=== PATIENT | male | born 1970 | race Caucasian/White ===

== ENCOUNTER 2020-03-22 08:42 | Inpatient (IN) | payer MEDICAID ==
--- NOTE | 2020-03-22 10:31 | ER Document Report ---
ED General - General Chief Complaint: Palpitations Stated Complaint: IRREGULAR HEART RATE Time Seen by Provider: 03/22/20 10:04 Notes: 49-year-old man presents to the emergency department with a two-week history of intermittent episodes of rapid heartbeat. He has a history of SVT is taking diltiazem, states he is been compliant with medications. During the episodes, now he is having chest pain, episodic dizziness, and yesterday a presyncopal episode. He states he has been on diltiazem for approximately 5 years. So has a history of thyroid disease and is taking a dose of Synthroid. TRAVEL OUTSIDE OF THE [place] IN LAST 30 DAYS: No - Related Data Allergies/Adverse Reactions: No Known Drug Allergies Allergy (Verified 03/22/20 10:20) Past Medical History - Social History Smoking Status: Unknown if Ever Smoked Family History: Reviewed & Not Pertinent - Past Medical History Cardiac Medical History: Reports: Hx Atrial Fibrillation, Hx Hypertension - No longer taking hypertension medication Denies: Hx Heart Murmur Pulmonary Medical History: Reports: Hx Bronchitis, Hx COPD Denies: Hx Respiratory Failure, Hx Sleep Apnea, Hx Tuberculosis Neurological Medical History: Denies: Hx Cerebrovascular Accident, Hx Seizures, Hx Parkinson's Disease Endocrine Medical History: Denies: Hx Graves' Disease, Hx Hyperthyroidism, Hx Hypothyroidism Renal/ Medical History: Denies: Hx Benign Prostatic Hyperplasia, Hx End Stage Renal Disease, Hx Kidney Stones, Hx Peritoneal Dialysis Malignancy Medical History: Denies Hx Leukemia, Reports Hx Lung Cancer GI Medical History: Reports: Hx Gastroesophageal Reflux Disease. Denies: Hx Crohn's Disease, Hx Hiatal Hernia, Hx Irritable Bowel, Hx Liver Failure, Hx Pancreatitis, Hx Ulcer Musculoskeletal Medical History: Reports Hx Arthritis, Denies Hx Fibromyalgia, Denies Hx Multiple Sclerosis, Denies Hx Muscular Dystrophy, Denies Hx Systemic Lupus Erythematosus Psychiatric Medical History: Reports: Hx Depression Denies: Hx Bipolar Disorder, Hx Dementia, Hx Post Traumatic Stress Disorder, Hx Schizophrenia Traumatic Medical History: Reports: Hx Fractures - Has been seen at least once with hand fracture from punching a wall. Infectious Medical History: Denies: Hx HIV Past Surgical History: Reports: Hx Orthopedic Surgery - left leg. Denies: Hx Appendectomy, Hx Bowel Surgery, Hx Cholecystectomy, Hx Colostomy, Hx Coronary Artery Bypass Graft, Hx Gastric Bypass Surgery, Hx Herniorrhaphy, Hx Pacemaker, Hx Tonsillectomy - Immunizations Hx Diphtheria, Pertussis, Tetanus Vaccination: Yes Hx Pneumococcal Vaccination: 06/28/11 Review of Systems - Review of Systems Notes: Constitutional: Negative for fever. HENT: Negative for sore throat. Eyes: Negative for visual changes. Cardiovascular: Negative for chest pain. Respiratory: Negative for shortness of breath. Gastrointestinal: Negative for abdominal pain, vomiting or diarrhea. Genitourinary: Negative for dysuria. Musculoskeletal: Negative for back pain. Skin: Negative for rash. Neurological: Negative for headaches, weakness or numbness. 10 point ROS negative except as marked above and in HPI. Physical Exam - Vital signs Vitals: Temp Pulse Resp BP Pulse Ox 98.3 F 105 H 20 128/80 H 93 03/22/20 08:47 03/22/20 08:47 03/22/20 08:47 03/22/20 08:47 03/22/20 08:47 - Notes Notes: PHYSICAL EXAMINATION: Physical Exam: General: Well-nourished well-developed in no acute distress HEENT: NC/AT, pupils equal round and reactive to light, MM moist,nares clear, oropharynx clear, airway patent Neck: supple, no adenopathy, no masses. Good range of motion Lungs: clear, no wheezing, no rales no rhonchi CVS: Regular rate and rhythm no murmur gallop or rub Abdomen: Soft, active, nontender, no masses, no hepatosplenomegaly Ext: No edema, clubbing or cyanosis. Neuro: Alert and responsive, moving all 4 extremities on command, cranial nerves intact, no focal findings Skin: Intact no open lesions, no rash PSYCH: Normal mood, normal affect. Intermittent tachycardia during exam. Course - Re-evaluation Re-evalutation: 03/22/20 11:24 Discussed the patient with Dr. Ferguson, cardiology, he states that the patient should be brought into the hospital for monitoring, echocardiogram, rule out cardiac injury and will be seen for transfer to [facility] lab. We will continue a beta-tyree. He has received IV diltiazem 15 mg IV and metoprolol 5 mg in the emergency department presently the rhythm normal sinus at rate of 82. 03/22/20 14:03 Discussed the patient with the hospitalist , patient will be admitted to the [facility] for further monitoring and to rule out WA. - Vital Signs Vital signs: Temp Pulse Resp BP Pulse Ox 98.3 F 105 H 25 H 113/75 95 03/22/20 08:47 03/22/20 08:47 03/22/20 11:46 03/22/20 11:46 03/22/20 11:46 - Laboratory Result Diagrams: 03/22/20 09:55 03/22/20 09:55 Laboratory results interpreted by me: 03/22/20 03/22/20 03/22/20 09:55 09:55 09:55 WBC 11.3 H RDW 14.9 H Plt Count 122 L [place] % (Auto) 14.1 H Absolute Monos (auto) 1.6 H Sodium 133.5 L BUN 4 L Creatine Kinase 293 H TSH 0.40 L - Diagnostic Test Radiology reviewed: Image reviewed, Reports reviewed Radiology results interpreted by me: 03/22/20 14:04 Chest x-ray: Patchy left lower lobe consolidation with small pleural effusion. - EKG Interpretation by Me EKG shows normal: ST-T Waves - ST depression, rate related. Rate: Tachycardia - 190 Rhythm: SVT Dola/QRS: Left axis deviation Discharge - Discharge Clinical Impression: Supraventricular tachycardia, paroxysmal, Dizziness Chest pain Qualifiers: Chest pain type: unspecified Qualified Code(s): R07.9 - Chest pain, unspecified Condition: Good Disposition: ADMITTED INPATIENT Admitting Provider: Dilma (Hospitalist) Unit Admitted: Telemetry
[2020-03-22] MEDS ORDERED: DILTIAZEM HCL INJ 25 MG/5 ML VIAL IV ONE (10:33)
[2020-03-22 10:54] LABS: ABSOLUTE BASOPHILS # (AUTO) 0.1 10^3/uL (0.0-0.2); ABSOLUTE EOSINOPHILS # (AUTO) 0.1 10^3/uL (0.0-0.6); ABSOLUTE LYMPHOCYTES (AUTO) 1.9 10^3/uL (0.5-4.7); ABSOLUTE MONOCYTES (AUTO) 1.6 10^3/uL (0.1-1.4); ABSOLUTE NEUT (AUTO) 7.7 10^3/uL (1.7-8.2); BASOPHILS % (AUTO) 0.8 % (0-2); EOSINOPHILS % (AUTO) 0.8 % (0-6); HEMATOCRIT 44.2 % (37.9-51.0); HEMOGLOBIN 14.4 g/dL (13.5-17.0); LYMPHOCYTES % (AUTO) 16.7 % (13-45); MEAN CORPUSCULAR HGB CONC 32.7 g/dL (32.0-36.0); MEAN CORPUSCULAR VOLUME 83 fl (80-97); MONOCYTES % (AUTO) 14.1 % (3-13); RED BLOOD COUNT 5.34 10^6/uL (4.35-5.55); RED CELL DISTRIBUTION WIDTH 14.9 % (11.5-14.0); SEGMENTED NEUTROPHILS % (AUTO) 67.6 % (42-78); TOTAL CELLS COUNTED % (AUTO) 100 %; WHITE BLOOD COUNT 11.3 10^3/uL (4.0-10.5)
[2020-03-22 10:56] LABS: ALBUMIN 3.6 g/dL (3.5-5.0); ALKALINE PHOSPHATASE 97 U/L (38-126); ANION GAP 9 (5-19); ASPARTATE AMINO TRANSFERASE 44 U/L (17-59); BILIRUBIN,TOTAL 0.6 mg/dL (0.2-1.3); BLOOD UREA NITROGEN 4 mg/dL (7-20); CALCIUM 8.5 mg/dL (8.4-10.2); CARBON DIOXIDE 26 mmol/L (22-30); CHLORIDE 99 mmol/L (98-107); CREATINE KINASE 293 U/L (55-170); GLUCOSE 80 mg/dL (75-110); TOTAL PROTEIN 6.9 g/dL (6.3-8.2)
[2020-03-22] MEDS ORDERED: METOPROLOL TARTRATE PF/INJ 5 MG/5 ML SDV IV ONE ×3 (11:00→11:15)
--- NOTE | 2020-03-22 11:04 | RADIOLOGY REPORT (SQ) ---
EXAM DESCRIPTION: CHEST SINGLE VIEW IMAGES COMPLETED DATE/TIME: 03/22/2020 10:54 am REASON FOR STUDY: Tachycardia/shortness of breath COMPARISON: 08/19/2014 TECHNIQUE: Single frontal radiographic view of the chest acquired. NUMBER OF VIEWS: One view. LIMITATIONS: None. FINDINGS: LUNGS AND PLEURA: No pneumothorax. New patchy left basilar consolidation -possible small left pleural effusion. Right lung appears clear. MEDIASTINUM AND HILAR STRUCTURES: Stable. HEART AND VASCULAR STRUCTURES: Stable. BONES: No acute findings. HARDWARE: None in the chest. OTHER: No other significant finding. IMPRESSION: New patchy left basilar consolidation -possible small left pleural effusion. TECHNICAL DOCUMENTATION: JOB ID: [id number] [id number] 2010 [employer]- All Rights Reserved Reading location - IP/workstation name: [email or web address]
[2020-03-22 11:07] LABS: CREATINE KINASE MB 1.72 ng/mL (<4.55); TROPONIN I 0.013 ng/mL
[2020-03-22 11:21] LABS: PLATELET COUNT 122 10^3/uL (150-450)
[2020-03-22 12:10] LABS: FREE T4 (FREE THYROXINE) 1.27 ng/dL (0.78-2.19)
[2020-03-22 12:24] LABS: THYROID STIMULATING HORMONE 0.4 uIU/mL (0.47-4.68)
[2020-03-22 12:30] LABS: APPEARANCE,URINE CLEAR; BILIRUBIN,URINE NEGATIVE (NEGATIVE); COLOR,URINE STRAW; GLUCOSE, URINE NEGATIVE (NEGATIVE); KETONES,URINE NEGATIVE (NEGATIVE); PROTEIN,URINE NEGATIVE (NEGATIVE); URINE SPECIFIC GRAVITY 1.003; UROBILINOGEN,URINE NEGATIVE mg/dL (<2.0)
[2020-03-22 12:51] LABS: URINE AMPHETAMINES SCREEN NEGATIVE; URINE BARBITURATES SCREEN NEGATIVE; URINE BENZODIAZEPINES SCREEN NEGATIVE; URINE COCAINE SCREEN NEGATIVE; URINE MARIJUANA (THC) SCREEN NEGATIVE; URINE METHADONE SCREEN NEGATIVE; URINE PHENCYCLIDINE SCREEN NEGATIVE
[2020-03-22] MEDS ORDERED: IPRATROPIUM/ALBUTEROL 0.5-2.5 MG/3 ML AMPUL NEB ONE (14:47)
[2020-03-22] MEDS: IPRATROPIUM/ALBUTEROL 0.5-2.5 MG/3 ML AMPUL NEB PRN (14:47)
[2020-03-22] MEDS ORDERED: ONDANSETRON HCL INJ/PF 4 MG/2 ML SDV IV PRN (14:53)
[2020-03-22] MEDS ORDERED: METOPROLOL TARTRATE PF/INJ 5 MG/5 ML SDV IV PRN (16:08)
[2020-03-22] MEDS ORDERED: AZITHROMYCIN INJ 500 MG VIAL IV ONE ×2 (18:30→22:16)
[2020-03-22] MEDS: CEFTRIAXONE 2 GM/D5W RTU 2 GM/50 ML RTUPB IV SCH (18:55)
--- NOTE | 2020-03-22 19:17 | EKG REPORT ---
SEVERITY:- ABNORMAL ECG - SUPRAVENTRICULAR TACHYCARDIA BORDERLINE LEFT AXIS DEVIATION ST DEPRESSION, PROBABLY RATE RELATED : Confirmed by: Gael Rico 22-Mar-2020 19:17:16
--- NOTE | 2020-03-22 19:19 | EKG REPORT ---
SEVERITY:- OTHERWISE NORMAL ECG - SINUS RHYTHM BORDERLINE LEFT AXIS DEVIATION : Confirmed by: Gael Rico 22-Mar-2020 19:18:26
[2020-03-22] MEDS ORDERED: GUAIFENESIN SYRP 200 MG/10 ML UDC PO PRN (19:35)
--- NOTE | 2020-03-22 19:39 | PDOC H&P ---
History of Present Illness Admission Date/PCP: 03/22/20 14:09 Patient complains of: Palpitations History of Present Illness: KETAN PORTILLO is a 49 year old male with history of COPD, distant history of lung cancer reports to be in remission, who presents to the hospital after becoming dyspneic with palpitations. He has been having these symptoms off and on for the past 1 week but the symptoms became really bad today urging him to come to the hospital. He also had a brief episode of syncope yesterday which was preceded by excessive palpitations. He denied any chest pain during encounter. In the ER, patient was noted to have severe SVT in the 180s was given Cardizem after which he showed improvement. Subsequently referred to hospitalist service for admission. Patient also endorses a dry hacking cough which he states he feels is due to his COPD. Past Medical History Cardiac Medical History: Reports: Atrial Fibrillation, Hypertension - No longer taking hypertension medication Denies: Heart Murmur Pulmonary Medical History: Reports: Bronchitis, Chronic Obstructive Pulmonary Di sease (COPD) Denies: Respiratory Failure, Sleep Apnea, Tuberculosis Neurological Medical History: Denies: Seizures Endocrine Medical History: Denies: Hyperthyroidism, Hypothyroidism Renal/ Medical History: Denies: End Stage Renal Disease Malignancy Medical History: Reports: Lung Cancer Denies: Leukemia GI Medical History: Reports: Gastroesophageal Reflux Disease Denies: Crohn's Disease, Hiatal Hernia Musculoskeltal Medical History: Reports: Arthritis Denies: Fibromyalgia Psychiatric Medical History: Reports: Depression Denies: Bipolar Disorder, Dementia, Post Traumatic Stress Disorder Hematology: Denies: Anemia, Hemophilia, Sickle Cell Disease Infectious Medical History: Denies: HIV Past Surgical History Past Surgical History: Reports: Orthopedic Surgery - left leg Denies: Appendectomy, Cholecystectomy, Colostomy, Coronary Artery Bypass Graft, Gastric Bypass Surgery, Herniorrhaphy, Pacemaker, Tonsillectomy Social History Smoking Status: Current Every Day Smoker Frequency of Alcohol Use: Heavy Hx Recreational Drug Use: Yes Hx Prescription Drug Abuse: No - Advance Directive Resuscitation Status: Full Code Family History Family History: CAD, Hypertension Parental Family History Reviewed: Yes Children Family History Reviewed: NA Sibling(s) Family History Reviewed.: Yes Medication/Allergy Home Medications: Gabapentin [Neurontin 400 mg Capsule] 800 mg PO TID 09/11/13 Albuterol Sulfate [Albuterol Sulfate Hfa] 2 puff IH Q4HP PRN 03/22/20 Albuterol Sulfate [Ventolin 0.083% Neb 2.5 mg/3 ml Ampul] 1 vial NEB RTQ6HP PRN 03/22/20 Aspirin [Ecotrin 81 mg EC Tablet] 81 mg PO DAILY 03/22/20 Cetirizine HCl [Zyrtec 10 mg Tablet] 10 mg PO DAILY 03/22/20 Diltiazem HCl [Cardizem Cd 240 mg Capsule.cr] 240 mg PO DAILY 03/22/20 Fluticasone Propionate [Flonase Nasal [place] 50 Mcg/[place] 16 gm] 1 spray NAREB DAILY 03/22/20 Levothyroxine Sodium 75 mcg PO Q6AM 03/22/20 Omeprazole 20 mg PO DAILY 03/22/20 Tiotropium Al[place] [Spiriva Handihaler 5 Cap/Kit (18 Mcg/Cap)] 1 cap IH DAILY 03/22/20 Allergies/Adverse Reactions: No Known Drug Allergies Allergy (Verified 03/22/20 10:20) Review of Systems Constitutional: ABSENT: chills, fatigue, fever(s) Eyes: ABSENT: visual disturbances Ears: ABSENT: hearing changes Nose, Mouth, and Throat: ABSENT: headache(s) Cardiovascular: ABSENT: chest pain Respiratory: PRESENT: cough. ABSENT: dyspnea, sputum Gastrointestinal: ABSENT: abdominal pain, nausea, vomiting Genitourinary: ABSENT: dysuria Integumentary: ABSENT: diaphoresis Neurological: PRESENT: dizziness, syncope Psychiatric: ABSENT: homidical ideation Endocrine: ABSENT: polyuria Allergic/Immunologic: ABSENT: seasonal rhinorrhea Physical Exam Vital Signs: Temp Pulse Resp BP Pulse Ox 98.5 F 105 H 24 H 108/71 91 L 03/22/20 15:26 03/22/20 08:47 03/22/20 17:00 03/22/20 17:00 03/22/20 17:00 Intake & Output 03/21/20 03/22/20 03/23/20 06:59 06:59 06:59 Weight 70 kg General appearance: PRESENT: no acute distress, cooperative Neck exam: ABSENT: JVD Respiratory exam: PRESENT: symmetrical, unlabored, wheezes. ABSENT: tachypnea Cardiovascular exam: PRESENT: RRR, +S1, +S2. ABSENT: tachycardia GI/Abdominal exam: PRESENT: soft. ABSENT: rebound, rigid, tenderness Extremities exam: ABSENT: pedal edema Neurological exam: PRESENT: alert, awake, oriented to person, oriented to place, oriented to time, oriented to situation Psychiatric exam: ABSENT: agitated, anxious Focused psych exam: ABSENT: pressured speech Skin exam: ABSENT: jaundice Results Laboratory Results: 03/22/20 09:55 03/22/20 09:55 03/22/20 03/22/20 03/22/20 09:55 09:55 09:55 WBC 11.3 H RBC 5.34 Hgb 14.4 Hct 44.2 MCV 83 MCH 27.0 MCHC 32.7 RDW 14.9 H Plt Count 122 L Seg Neutrophils % 67.6 Sodium 133.5 L Potassium 4.0 Chloride 99 Carbon Dioxide 26 Anion Gap 9 BUN 4 L Creatinine 0.68 Est GFR ( Amer) > 60 Glucose 80 Calcium 8.5 Total Bilirubin 0.6 AST 44 Alkaline Phosphatase 97 Total Protein 6.9 Albumin 3.6 TSH 0.40 L Free T4 1.27 Urine Color Urine Appearance Urine pH Ur Specific [place] Urine Protein Urine Glucose (UA) Urine Ketones Urine Blood Urine RBC (Auto) 03/22/20 12:13 WBC RBC Hgb Hct MCV MCH MCHC RDW Plt Count Seg Neutrophils % Sodium Potassium Chloride Carbon Dioxide Anion Gap BUN Creatinine Est GFR ( Amer) Glucose Calcium Total Bilirubin AST Alkaline Phosphatase Total Protein Albumin TSH Free T4 Urine Color STRAW Urine Appearance CLEAR Urine pH 8.0 Ur Specific [place] 1.003 Urine Protein NEGATIVE Urine Glucose (UA) NEGATIVE Urine Ketones NEGATIVE Urine Blood NEGATIVE Urine RBC (Auto) 0 03/22/20 03/22/20 09:55 09:55 Creatine Kinase 293 H CK-MB (CK-2) 1.72 Troponin I 0.013 Impressions: Chest X-Ray 03/22/20 10:30 IMPRESSION: New patchy left basilar consolidation -possible small left pleural effusion. Assessment and Plan - Diagnosis (1) Supraventricular tachycardia, paroxysmal Is this a current diagnosis for this admission?: Yes Plan: Presented with SVT in the 180s received treatment with Cardizem.. Currently EKG showing sinus tachycardia with a regular rate TSH is normal May have been exacerbated by current PNA Cardiology has been consulted I will continue history of diltiazem 40 mg daily Monitor strictly on telemetry IV Lopressor as needed (2) Syncope Is this a current diagnosis for this admission?: Yes Plan: Secondary to tachyarrhythmia. Occurred yesterday. Plan as above. (3) Community acquired pneumonia Qualifiers: Laterality: left Lung location: lower lobe of lung Qualified Code(s): J18.9 - Pneumonia, unspecified organism Is this a current diagnosis for this admission?: Yes Plan: Chest x-ray shows opacity of his left lung. Also has leukocytosis on blood work. Has dry hacking cough. Check sputum cultures Start on ceftriaxone and azithromycin Check COVID-19 test Guaifenesin (4) COPD (chronic obstructive pulmonary disease) Is this a current diagnosis for this admission?: Yes Plan: Not having an acute exacerbation. PRN nebulizers (5) History of lung cancer Is this a current diagnosis for this admission?: Yes Plan: Patient endorses history of lung cancer involving his left lung with radiation performed on his left. States he cuts radiation and chemotherapy in 2011 and has been in remission since then. Currently chest x-ray shows some left infiltrates as well as pleural effusion We will check a CTA of chest - Time Time Spent with patient: 35 or more minutes Anticipated Discharge Disposition: Home, Self Care Anticipated Discharge: within 72 hours
--- NOTE | 2020-03-22 20:25 | RADIOLOGY REPORT (SQ) ---
CT ANGIOGRAM CHEST WITH IV CONTRAST: 03/22/2020 7:20 PM CDT HISTORY: 49-year old patient with tachycardia, prior history of lung cancer. TECHNIQUE: Postcontrast CT through the chest was performed per protocol for CT angiography. 3D Multiplanar reformations were performed at the workstation. Reconstructed sagittal and coronal images were also obtained through the chest. This exam was performed according to our departmental dose-optimization program, which includes automated exposure control, adjustment of the mA and/or KV according to the patient's size and/or use of iterative reconstruction technique. COMPARISON: CT the chest from 06/05/2015 FINDINGS: The heart size is within normal limits of size. There are nonspecific mediastinal lymph nodes. Prevascular lymph nodes measure up to 9 mm in short axis dimension. Pretracheal and paratracheal lymph nodes measure up to 8 to 9 mm in short axis dimension. No suspicious supraclavicular or axillary lymphadenopathy is seen. The thoracic aorta is within normal limits of size. No filling defects are seen within the pulmonary arteries to suggest a pulmonary artery embolism. The main pulmonary artery is within normal limits of size. The thyroid gland is not visualized. The central tracheobronchial tree is patent. There consolidative airspace opacities at the left lower lobe. There is increased density at the left infrahilar region with some possible postsurgical change or posttreatment change at this area. There is a masslike area at the left infrahilar region measuring 2.8 x 2.2 cm. This is more pronounced than on the 2016 imaging. Consolidative airspace opacities are seen distal to this area. There are is moderate to severe centrilobular emphysematous change. There are groundglass airspace opacities at the posterior segment of the right upper lobe. There is a round groundglass airspace opacity at the periphery of the right upper lobe on image 75 of 134. There is no evidence of pleural effusions or a pneumothorax. The bones demonstrate no suspicious lytic or blastic lesion. The visualized portions of the upper abdomen appear grossly unremarkable. IMPRESSION: There are airspace opacities at the left lower lobe which may reflect infection. There is a 2.8 cm masslike density at the left infrahilar region more pronounced than on 2015 imaging concerning for recurrent malignancy. No filling defect is seen to suggest a pulmonary artery embolism. Emphysematous changes are seen within the lungs.
[2020-03-22] MEDS: GUAIFENESIN 600 MG TABLET.SA PO SCH (22:06)
[2020-03-22] MEDS ORDERED: FLUTICASONE NASAL SPRAY 50 MCG/SPRY 120 SPRAY/16 GM ONE (22:17)
[2020-03-23 05:32] LABS: ABSOLUTE BASOPHILS # (AUTO) 0.1 10^3/uL (0.0-0.2); ABSOLUTE EOSINOPHILS # (AUTO) 0.2 10^3/uL (0.0-0.6); ABSOLUTE LYMPHOCYTES (AUTO) 2.4 10^3/uL (0.5-4.7); ABSOLUTE MONOCYTES (AUTO) 1.8 10^3/uL (0.1-1.4); ABSOLUTE NEUT (AUTO) 7.3 10^3/uL (1.7-8.2); EOSINOPHILS % (AUTO) 1.5 % (0-6); HEMATOCRIT 44.1 % (37.9-51.0); HEMOGLOBIN 14.5 g/dL (13.5-17.0); LYMPHOCYTES % (AUTO) 20.3 % (13-45); MEAN CORPUSCULAR HEMOGLOBIN 27.1 pg (27.0-33.4); MEAN CORPUSCULAR VOLUME 82 fl (80-97); MONOCYTES % (AUTO) 15.6 % (3-13); RED BLOOD COUNT 5.36 10^6/uL (4.35-5.55); RED CELL DISTRIBUTION WIDTH 15.2 % (11.5-14.0); SEGMENTED NEUTROPHILS % (AUTO) 61.6 % (42-78); TOTAL CELLS COUNTED % (AUTO) 100 %; WHITE BLOOD COUNT 11.8 10^3/uL (4.0-10.5)
[2020-03-23 05:34] LABS: PLATELET COUNT 283 10^3/uL (150-450)
[2020-03-23 05:53] LABS: ANION GAP 10 (5-19); BLOOD UREA NITROGEN 8 mg/dL (7-20); CALCIUM 8.5 mg/dL (8.4-10.2); CARBON DIOXIDE 25 mmol/L (22-30); CHLORIDE 97 mmol/L (98-107); GLUCOSE 104 mg/dL (75-110); POTASSIUM 3.6 mmol/L (3.6-5.0)
[2020-03-23] MEDS: LEVOTHYROXINE SODIUM 0.075 MG TABLET PO SCH (06:08)
--- NOTE | 2020-03-23 07:50 | EKG REPORT ---
SEVERITY:- OTHERWISE NORMAL ECG - SINUS RHYTHM LOW VOLTAGE IN FRONTAL LEADS : Confirmed by: Gael Rico 23-Mar-2020 07:49:43
--- NOTE | 2020-03-23 09:38 | EKG REPORT ---
SEVERITY:- ABNORMAL ECG - PACEMAKER SPIKES OR ARTIFACTS A FIB WITH RVR WITH CONVERSION TO SINUS RHYTHM AND APC BORDERLINE LEFT AXIS DEVIATION : Confirmed on behalf of: Gael Rico 23-Mar-2020 09:37:23
--- NOTE | 2020-03-23 09:39 | EKG REPORT ---
SEVERITY:- ABNORMAL ECG - SINUS RHYTHM, PACING ARTIFACTS NOTED. BORDERLINE LEFT AXIS DEVIATION : Confirmed on behalf of: Gael Rico 23-Mar-2020 09:38:03
--- NOTE | 2020-03-23 09:39 | EKG REPORT ---
SEVERITY:- ABNORMAL ECG - A FIB WITH PACEMAKER SPIKES ARTIFACTS ATRIAL FIBRILLATION, V-RATE 78-172 BORDERLINE LEFT AXIS DEVIATION : Confirmed on behalf of: Gael Rico 23-Mar-2020 09:37:50
[2020-03-23] MEDS ORDERED: AZITHROMYCIN INJ 500 MG VIAL IV SCH (10:00)
--- NOTE | 2020-03-23 10:05 | PDOC CONSULTATION ---
Consultation Consult Date: 03/23/20 Attending physician:: BRYNN RAMÍREZ Provider Consulted: WYATT WALKER Consult reason:: Palpitations History of Present Illness Admission Date/PCP: 03/22/20 14:09 History of Present Illness: KETAN PORTILLO is a 49 year old male with history of COPD, current smoker, SVT treated with Cardizem and lung cancer who is consulted to our service for recurrence of SVT. The patient had been having episodes of palpitations and racing heart sometimes associated with dizziness or lightheadedness for at least 1 month. His symptoms continue to progress and he states that last week they became very frequent to the point he sought medical attention yesterday in our emergency room where he was found to be in an SVT with a heart rate of almost 200 bpm. In the ER he was given Cardizem after which he converted to sinus rhythm. He had an uneventful night and denies recurrence of palpitations since admission to the hospital. Unfortunately his CT scan demonstrated a long mass measuring 2.8 cm likely representing recurrence of his lung cancer. Upon further questioning, the patient resumed smoking and did not follow-up with oncology as he was supposed to. Past Medical History Cardiac Medical History: Reports: Atrial Fibrillation, Hypertension - No longer taking hypertension medication Denies: Heart Murmur Pulmonary Medical History: Reports: Bronchitis, Chronic Obstructive Pulmonary Disease (COPD) Denies: Respiratory Failure, Sleep Apnea, Tuberculosis Neurological Medical History: Denies: Seizures Endocrine Medical History: Denies: Hyperthyroidism, Hypothyroidism Renal/ Medical History: Denies: End Stage Renal Disease Malignancy Medical History: Reports: Lung Cancer Denies: Leukemia GI Medical History: Reports: Gastroesophageal Reflux Disease Denies: Crohn's Disease, Hiatal Hernia Musculoskeltal Medical History: Reports: Arthritis Denies: Fibromyalgia Psychiatric Medical History: Reports: Depression Denies: Bipolar Disorder, Dementia, Post Traumatic Stress Disorder Hematology: Denies: Anemia, Hemophilia, Sickle Cell Disease Infectious Medical History: Denies: HIV Past Surgical History Past Surgical History: Reports: Orthopedic Surgery - left leg Denies: Appendectomy, Cholecystectomy, Colostomy, Coronary Artery Bypass Graft, Gastric Bypass Surgery, Herniorrhaphy, Pacemaker, Tonsillectomy Social History Smoking Status: Current Every Day Smoker Frequency of Alcohol Use: Heavy Hx Recreational Drug Use: Yes Hx Prescription Drug Abuse: No - Advance Directive Resuscitation Status: Full Code Family History Family History: CAD, Hypertension Parental Family History Reviewed: Yes Children Family History Reviewed: Yes Sibling(s) Family History Reviewed.: Yes Medication/Allergy Home Medications: Gabapentin [Neurontin 400 mg Capsule] 800 mg PO TID 09/11/13 Albuterol Sulfate [Albuterol Sulfate Hfa] 2 puff IH Q4HP PRN 03/22/20 Albuterol Sulfate [Ventolin 0.083% Neb 2.5 mg/3 ml Ampul] 1 vial NEB RTQ6HP PRN 03/22/20 Aspirin [Ecotrin 81 mg EC Tablet] 81 mg PO DAILY 03/22/20 Cetirizine HCl [Zyrtec 10 mg Tablet] 10 mg PO DAILY 03/22/20 Diltiazem HCl [Cardizem Cd 240 mg Capsule.cr] 240 mg PO DAILY 03/22/20 Fluticasone Propionate [Flonase Nasal [place] 50 Mcg/[place] 16 gm] 1 spray NAREB DAILY 03/22/20 Levothyroxine Sodium 75 mcg PO Q6AM 03/22/20 Omeprazole 20 mg PO DAILY 03/22/20 Tiotropium [place] [Spiriva Handihaler 5 Cap/Kit (18 Mcg/Cap)] 1 cap IH DAILY 03/22/20 Allergies/Adverse Reactions: No Known Drug Allergies Allergy (Verified 03/22/20 10:20) Physical Exam Vital Signs: Temp Pulse Resp BP Pulse Ox 98.2 F 80 18 118/62 97 03/23/20 04:27 03/23/20 04:27 03/23/20 04:27 03/23/20 04:27 03/23/20 04:27 Intake & Output 03/22/20 03/23/20 03/24/20 06:59 06:59 06:59 Intake Total 50 Balance 50 Weight 70 kg Results Laboratory Results: 03/23/20 05:00 03/23/20 05:00 03/22/20 03/22/20 03/22/20 09:55 09:55 09:55 WBC 11.3 H RBC 5.34 Hgb 14.4 Hct 44.2 MCV 83 MCH 27.0 MCHC 32.7 RDW 14.9 H Plt Count 122 L Seg Neutrophils % 67.6 Sodium 133.5 L Potassium 4.0 Chloride 99 Carbon Dioxide 26 Anion Gap 9 BUN 4 L Creatinine 0.68 Est GFR ( Amer) > 60 Glucose 80 Calcium 8.5 Magnesium Total Bilirubin 0.6 AST 44 Alkaline Phosphatase 97 Total Protein 6.9 Albumin 3.6 TSH 0.40 L Free T4 1.27 Urine Color Urine Appearance Urine pH Ur Specific [place] Urine Protein Urine Glucose (UA) Urine Ketones Urine Blood Urine RBC (Auto) 03/22/20 03/23/20 03/23/20 12:13 05:00 05:00 WBC 11.8 H RBC 5.36 Hgb 14.5 Hct 44.1 MCV 82 MCH 27.1 MCHC 33.0 RDW 15.2 H Plt Count 283 D Seg Neutrophils % 61.6 Sodium 131.5 L Potassium 3.6 Chloride 97 L Carbon Dioxide 25 Anion Gap 10 BUN 8 Creatinine 0.91 Est GFR ( Amer) > 60 Glucose 104 Calcium 8.5 Magnesium 1.9 Total Bilirubin AST Alkaline Phosphatase Total Protein Albumin TSH Free T4 Urine Color STRAW Urine Appearance CLEAR Urine pH 8.0 Ur Specific [place] 1.003 Urine Protein NEGATIVE Urine Glucose (UA) NEGATIVE Urine Ketones NEGATIVE Urine Blood NEGATIVE Urine RBC (Auto) 0 03/22/20 03/22/20 09:55 09:55 Creatine Kinase 293 H CK-MB (CK-2) 1.72 Troponin I 0.013 Impressions: Chest/Abdomen CTA 03/22/20 00:00 IMPRESSION: There are airspace opacities at the left lower lobe which may reflect infection. There is a 2.8 cm masslike density at the left infrahilar region more pronounced than on 2015 imaging concerning for recurrent malignancy. No filling defect is seen to suggest a pulmonary artery embolism. Emphysematous changes are seen within the lungs. Chest X-Ray 03/22/20 10:30 IMPRESSION: New patchy left basilar consolidation -possible small left pleural effusion. 03/23/20 05:00 03/23/20 05:00 MCV 82 fl (80-97) 03/23/20 05:00 MCH 27.1 pg (27.0-33.4) 03/23/20 05:00 MCHC 33.0 g/dL (32.0-36.0) 03/23/20 05:00 RDW 15.2 % (11.5-14.0) H 03/23/20 05:00 Seg Neutrophils % 61.6 % (42-78) 03/23/20 05:00 Chloride 97 mmol/L (98-107) L 03/23/20 05:00 Carbon Dioxide 25 mmol/L (22-30) 03/23/20 05:00 Anion Gap 10 (5-19) 03/23/20 05:00 Est GFR ( Amer) > 60 (>60) 03/23/20 05:00 Glucose 104 mg/dL (75-110) 03/23/20 05:00 Calcium 8.5 mg/dL (8.4-10.2) 03/23/20 05:00 Magnesium 1.9 mg/dL (1.6-2.3) 03/23/20 05:00 Total Bilirubin 0.6 mg/dL (0.2-1.3) 03/22/20 09:55 AST 44 U/L (17-59) 03/22/20 09:55 Alkaline Phosphatase 97 U/L (38-126) 03/22/20 09:55 Total Protein 6.9 g/dL (6.3-8.2) 03/22/20 09:55 Albumin 3.6 g/dL (3.5-5.0) 03/22/20 09:55 TSH 0.40 uIU/mL (0.47-4.68) L 03/22/20 09:55 Free T4 1.27 ng/dL (0.78-2.19) 03/22/20 09:55 Urine Color STRAW 03/22/20 12:13 Urine Appearance CLEAR 03/22/20 12:13 Urine pH 8.0 (5.0-9.0) 03/22/20 12:13 Ur Specific [place] 1.003 03/22/20 12:13 Urine Protein NEGATIVE mg/dL (NEGATIVE) 03/22/20 12:13 Urine Glucose (UA) NEGATIVE mg/dL (NEGATIVE) 03/22/20 12:13 Urine Ketones NEGATIVE mg/dL (NEGATIVE) 03/22/20 12:13 Urine Blood NEGATIVE (NEGATIVE) 03/22/20 12:13 Urine RBC (Auto) 0 /HPF 03/22/20 12:13 03/22/20 03/22/20 09:55 09:55 Creatine Kinase 293 H CK-MB (CK-2) 1.72 Troponin I 0.013 Current Medication List Generic Name Dose Route Start Last Admin Trade Name Freq PRN Reason Stop Dose Admin Albuterol/Ipratropium 3 ml 03/22/20 14:53 03/22/20 14:47 Duoneb 3 Ml Ampul NEB 04/21/20 14:52 3 ml RTQ6HP PRN Administration SHORTNESS OF BREATH Aspirin 81 mg 03/23/20 10:00 Ecotrin 81 Mg Ec Tablet PO 04/22/20 09:59 DAILY IRIS Cetirizine HCl 10 mg 03/23/20 10:00 Zyrtec 10 Mg Tablet PO 04/22/20 09:59 DAILY IRIS Diltiazem HCl 240 mg 03/23/20 10:00 Cardizem Cd 240 Mg Capsule.Cr PO 04/22/20 09:59 DAILY IRIS Enoxaparin Sodium 40 mg 03/23/20 10:00 Lovenox Inj 40 Mg/0.4 Ml Disp.Syrin SUBCUT 04/22/20 09:59 DAILY IRIS Fluticasone Propionate 1 spray 03/23/20 10:00 Flonase Nasal [place] 50 Mcg/[place] 16 Gm NAREB 04/22/20 09:59 DAILY IRIS Gabapentin 800 mg 03/23/20 10:00 Neurontin 400 Mg Capsule PO 04/22/20 09:59 TID IRIS Guaifenesin 200 mg 03/22/20 19:35 Robitussin Syrup 200 Mg/10 Ml Ud Cup PO 04/21/20 19:34 QIDP PRN COUGH Guaifenesin 600 mg 03/22/20 22:00 03/22/20 22:06 Mucinex Sr 600 Mg Tablet.Sa PO 04/21/20 21:59 600 mg Q12 IRIS Administration Ceftriaxone Sodium/Dextrose 2 gm in 50 mls @ 100 mls/hr 03/22/20 18:00 19:45 Rocephin Rtu 2 Gm/D5w 50 Ml Premix Bag IV 03/29/20 17:59 Infused QPM IRIS Infusion Azithromycin 250 mg/ Dextrose 250 mls @ 250 mls/hr 03/23/20 22:00 IV 03/27/20 21:59 QHS IRIS Levothyroxine Sodium 0.075 mg 03/23/20 06:00 03/23/20 06:08 Synthroid 0.075 Mg Tablet PO 04/22/20 05:59 0.075 mg Q6AM IRIS Administration Metoprolol Tartrate 5 mg 03/22/20 16:08 Lopressor Inj/Pf 5 Mg/5 Ml Sdv IV 04/21/20 16:07 Q6HP PRN GIVE FOR HR > [] Ondansetron HCl 4 mg 03/22/20 14:53 Zofran Inj/Pf 4 Mg/2 Ml Sdv IV 04/21/20 14:52 Q8HP PRN FOR NAUSEA/VOMITING Discontinued Medications Generic Name Dose Route Start Last Admin Trade Name Freq PRN Reason Stop Dose Admin Albuterol/Ipratropium Confirm 03/22/20 14:47 03/22/20 15:58 Duoneb 3 Ml Ampul Administered 03/22/20 14:48 Not Given Dose 3 ml NEB .STK-MED ONE Azithromycin 500 mg 03/22/20 18:30 03/22/20 23:37 Zithromax Inj 500 Mg Vial IV 03/22/20 18:31 500 mg IVBAG (ED) ONE Administration Azithromycin Confirm 03/22/20 22:16 03/22/20 23:42 Zithromax Inj 500 Mg Vial Administered 03/22/20 22:17 Not Given Dose 500 mg IV .STK-MED ONE Diltiazem HCl 15 mg 03/22/20 10:33 03/22/20 10:38 Cardizem Inj 25 Mg/5 Ml Vial IV 03/22/20 10:34 15 mg NOW ONE Administration Fluticasone Propionate Confirm 03/22/20 22:17 03/22/20 23:42 Flonase Nasal [place] 50 Mcg/[place] 16 Gm Administered 03/22/20 22:18 Not Given Dose 120 spray .ROUTE .STK-MED ONE Metoprolol Tartrate 5 mg 03/22/20 11:00 03/22/20 11:03 Lopressor Inj/Pf 5 Mg/5 Ml Sdv IV 03/22/20 11:01 2.5 mg NOW ONE Administration Metoprolol Tartrate Confirm 03/22/20 11:01 03/22/20 11:25 Lopressor Inj/Pf 5 Mg/5 Ml Sdv Administered 03/22/20 11:02 Not Given Dose 5 mg IV .STK-MED ONE Metoprolol Tartrate 2.5 mg 03/22/20 11:15 03/22/20 11:15 Lopressor Inj/Pf 5 Mg/5 Ml Sdv IV 03/22/20 11:16 2.5 mg NOW ONE Administration Assessment & Plan - Diagnosis (1) Supraventricular tachycardia, paroxysmal Plan: The patient has remained hemodynamically stable and without recurrence of his supraventricular tachycardia. The etiology of the recurrence of his SVT is like ly multifactorial and includes his current smoking, the possibility of a lung infection and recurrence of his lung malignancy. Given that he has remained stable and that he needs further work-up for his lung cancer prior to any other invasive cardiovascular interventions, we will continue with diltiazem p.o. at current doses and will arrange for evaluation with Dr. Murphy, 1 of our furniture [employer], with [facility]. The case was discussed with Dr. Murphy and she agreed with the plan. Recommendations: -Continue with cardiac telemetry. -May use adenosine IV for treatment of recurrence of SVT. -Echocardiogram today. -We will arrange for electrophysiology follow-up with Dr. Murphy. -We will sign off the case for now, reconsult if clinically necessary.
[2020-03-23] MEDS ORDERED: ONDANSETRON HCL INJ/PF 4 MG/2 ML SDV IV PRN (10:30)
[2020-03-23] MEDS: GABAPENTIN 400 MG CAPSULE PO SCH ×3 (10:33→17:39)
[2020-03-23] MEDS: CETIRIZINE 10 MG TABLET PO SCH (10:33)
[2020-03-23] MEDS: GUAIFENESIN 600 MG TABLET.SA PO SCH ×2 (10:34→21:28)
[2020-03-23] MEDS: ENOXAPARIN SODIUM INJ 40 MG/0.4 ML DISP.SYRIN SUBCUT SCH (10:34)
[2020-03-23] MEDS: DILTIAZEM HCL 240 MG CAPSULE.CR PO SCH (10:34)
[2020-03-23] MEDS: ASPIRIN 81 MG TABLET, ENT COATED PO SCH (10:34)
[2020-03-23] MEDS: FLUTICASONE NASAL SPRAY 50 MCG/SPRY 120 SPRAY/16 GM NAREB SCH (10:35)
[2020-03-23] MEDS: PANTOPRAZOLE SODIUM 20 MG TABLET.DR PO SCH (14:04)
[2020-03-23] MEDS: IPRATROPIUM/ALBUTEROL 0.5-2.5 MG/3 ML AMPUL NEB PRN (16:07)
[2020-03-23] MEDS: CEFTRIAXONE 2 GM/D5W RTU 2 GM/50 ML RTUPB IV SCH (17:39)
--- NOTE | 2020-03-23 17:52 | PDOC PROGRESS REPORT ---
Subjective Progress Note for:: 03/23/20 Subjective:: Patient feels well today. Had no episodes overnight. He has had no presyncopal syncopal events since admission. Reason For Visit: SVT,SYNCOPE PNA Physical Exam Vital Signs: Temp Pulse Resp BP Pulse Ox 98.0 F 71 18 107/69 97 03/23/20 08:25 03/23/20 16:10 03/23/20 16:10 03/23/20 08:25 03/23/20 16:10 Intake & Output 03/22/20 03/23/20 03/24/20 06:59 06:59 06:59 Intake Total 50 Balance 50 Weight 70 kg General appearance: PRESENT: no acute distress, cooperative Neck exam: ABSENT: JVD Respiratory exam: PRESENT: clear to auscultation ivana, unlabored. ABSENT: tachypnea, wheezes Cardiovascular exam: PRESENT: RRR, +S1, +S2. ABSENT: tachycardia GI/Abdominal exam: PRESENT: soft. ABSENT: rebound, rigid, tenderness Neurological exam: PRESENT: alert, awake, oriented to person, oriented to place, oriented to time, oriented to situation Results Laboratory Results: 03/23/20 05:00 03/23/20 05:00 03/23/20 03/23/20 05:00 05:00 WBC 11.8 H RBC 5.36 Hgb 14.5 Hct 44.1 MCV 82 MCH 27.1 MCHC 33.0 RDW 15.2 H Plt Count 283 D Seg Neutrophils % 61.6 Sodium 131.5 L Potassium 3.6 Chloride 97 L Carbon Dioxide 25 Anion Gap 10 BUN 8 Creatinine 0.91 Est GFR ( Amer) > 60 Glucose 104 Calcium 8.5 Magnesium 1.9 03/23/20 04:40 Sputum Gram Stain - Final 03/23/20 04:40 Sputum Sputum Culture - Final 03/22/20 03/22/20 09:55 09:55 Creatine Kinase 293 H CK-MB (CK-2) 1.72 Troponin I 0.013 Impressions: Chest/Abdomen CTA 03/22/20 00:00 IMPRESSION: There are airspace opacities at the left lower lobe which may reflect infection. There is a 2.8 cm masslike density at the left infrahilar region more pronounced than on 2015 imaging concerning for recurrent malignancy. No filling defect is seen to suggest a pulmonary artery embolism. Emphysematous changes are seen within the lungs. Chest X-Ray 03/22/20 10:30 IMPRESSION: New patchy left basilar consolidation -possible small left pleural effusion. Assessment and Plan - Diagnosis (1) Supraventricular tachycardia, paroxysmal Is this a current diagnosis for this admission?: Yes Plan: Presented with SVT in the 180s received treatment with Cardizem.. Currently EKG showing sinus rhythm with a regular rate TSH is normal May have been exacerbated by current PNA Was evaluated by cardiology who recommends patient follow-up outpatient with riprap placer Dr. Janine Murphy. I will continue history of diltiazem 40 mg daily I have reviewed patient's telemetry which shows no recurrence of his SVT overnight. IV Lopressor as needed Echocardiogram obtained (2) Pneumonia Qualifiers: Pneumonia type: due to unspecified organism Laterality: left Lung location: lower lobe of lung Qualified Code(s): J18.9 - Pneumonia, unspecified organism Is this a current diagnosis for this admission?: Yes Plan: CTA of the chest shows no evidence of pulmonary embolism but does show left infrahilar mass with possible postobstructive pneumonia. Not producing much in terms of sputum and sputum culture sample was inadequate. Currently receiving ceftriaxone and azithromycin. COVID-19 test result is pending. (3) Mass of left lung Is this a current diagnosis for this admission?: Yes Plan: As noted, CT of the chest showed left infrahilar 2.8 cm masslike region. This seems to have grown as compared to previous CT in 2015 which showed 1.3 cm. Uncertain if this finding is due to his previous radiation or if indicated above recurrent lung cancer. Patient followed with Dr. Smith at the time of his previous treatment few years ago. He informs me that he received radiation and chemo. I will have oncology evaluate patient. (4) Syncope Is this a current diagnosis for this admission?: Yes Plan: Secondary to tachyarrhythmia. Resolved at this time. Monitor. (5) COPD (chronic obstructive pulmonary disease) Qualifiers: COPD type: emphysema Emphysema type: centrilobular Qualified Code(s): J43.2 - Centrilobular emphysema Is this a current diagnosis for this admission?: Yes Plan: Not having an acute exacerbation. PRN breathing treatments - Time Time Spent with patient: Less than 15 minutes Anticipated Discharge Disposition: Home, Self Care Anticipated Discharge: within 36 hours
--- NOTE | 2020-03-23 21:31 | XCELERA REPORT ---
[address] [address] Transthoracic Echocardiogram Report Name: KETAN PORTILLO Age: 49 yrs Gender: Male : 1970 Patient Status: Inpatient Patient Location: [address] [place], [place] [address] Study Date: 03/23/2020 11:17 AM Height: 66 in Weight: 154 lb BSA: 1.8 m2 Procedure: A complete two-dimensional transthoracic echocardiogram was performed (2D, M-mode, spectral and color flow Doppler). The study was technically adequate with some images being suboptimal in quality. Reason For Study: svt Ordering Physician: BRYNN RAMÍREZ Performed By: Panfilo Young Interpretation Summary The left ventricle is grossly normal size. Left ventricular systolic function is normal. The Ejection Fraction estimate is 50-55%. Doppler measurements suggest impaired left ventricular relaxation, which is associated with grade I/IV or mild diastolic dysfunction. The left ventricular wall motion is normal. Trace to mild MR, trace TR. No prior studies for comparison. MMode/2D Measurements & Calculations RVDd: 2.5 cm LVIDd: 5.5 cm FS: 26.3 % Ao root diam: 2.8 cm IVSd: 0.79 cm LVIDs: 4.1 cm EDV(Teich): Ao root area: 148.7 ml LVPWd: 0.73 cm 6.1 cm2 ESV(Teich): 72.9 mlLA dimension: 3.5 cm EF(Teich): 51.0 % LVLd ap4: 7.6 cm SV(MOD-sp4): EDV(MOD-sp4): 43.0 ml 86.0 ml LVLs ap4: 6.3 cm ESV(MOD-sp4): 43.0 ml EF(MOD-sp4): 50.0 % Doppler Measurements & Calculations MV E max sandy: MV P1/2t max sandy: Ao V2 max: LV V1 max P.1 cm/sec 86.4 cm/sec 116.2 cm/sec 4.1 mmHg MV A max sandy: MV P1/2t: 62.9 msec Ao max PG: LV V1 max: 89.5 cm/sec 5.4 mmHg 101.8 cm/sec MVA(P1/2t): 3.5 cm2 MV E/A: 0.88 MV dec slope: LV dP/dt: 402.4 cm/sec2 1136 mmHg/s MV dec time: 0.15 sec PA V2 max: MV P1/2t-pr_phl: 79.1 cm/sec 62.9 msec PA max P.5 mmHg Left Ventricle The left ventricle is grossly normal size. Left ventricular systolic function is normal. The Ejection Fraction estimate is 50-55%. Doppler measurements suggest impaired left ventricular relaxation, which is associated with grade I/IV or mild diastolic dysfunction. The left ventricular wall motion is normal. Right Ventricle The right ventricle is normal in size, thickness and function. The right ventricular systolic function is normal. Atria The right atrium is normal. The left atrial size is normal. The interatrial septum is intact with no evidence for an atrial septal defect. Mitral Valve The mitral valve leaflets appear thickened, but open well. There is no evidence of mitral valve prolapse. There is no mitral valve stenosis. There is a trace to mild amount of mitral regurgitation. Aortic Valve The aortic valve is sclerotic, but shows no functional abnormality. The aortic valve is not well visualized secondary to technical limitations. There is no aortic valvular vegetation. There is no aortic valve stenosis. No aortic regurgitation is present. Tricuspid Valve The tricuspid valve is not well visualized, but is grossly normal. There is no tricuspid valve prolapse. There is no tricuspid stenosis. There is a trace or physiologic amount of tricuspid regurgitation. Pulmonic Valve The pulmonic valve is not well visualized. There is no vegetation on the pulmonic valve. There is no pulmonic valvular stenosis. There is no pulmonic valvular regurgitation. Great Vessels The inferior vena cava appeared small and collapsed with respiration (RAP 0-5 mmHg). Effusions There is no pericardial effusion. There is no pleural effusion. : BRYNN RAMÍREZ Antonio
[2020-03-23] MEDS ORDERED: AZITHROMYCIN 250 MG in DEXTROSE 5%-WATER 250 ML IV SCH (22:00)
[2020-03-24] MEDS: LEVOTHYROXINE SODIUM 0.075 MG TABLET PO SCH (06:11)
--- NOTE | 2020-03-24 08:52 | PDOC CONSULTATION ---
Consultation Consult Date: 03/24/20 Attending physician:: RICHAR ARIAS Provider Consulted: DONNY ROEGRS Consult reason:: Pt w/ known h/o stage III L lung ca s/p concurrent chemo/rx now w/ concern of recurrence lung History of Present Illness Admission Date/PCP: 03/22/20 14:09 Patient complains of: SOB/CP History of Present Illness: Patient was consulted today for this telemedicine visit due to the COVID-19 restrictions. Patient states understanding and consents to this telemedicine visit. Patient confirmed identity with two patient identifiers. KETAN PORTILLO is a 49 year old male w/ known h/o stage III NSCLC left lung cancer s/p concurrent chemo/xrt. Obtained complete response and did not have change in post tx imaging, last imaging thru our office done in 2014, that also was last f/u, he was supposed to see us q 6m thru 2015 but did not show for appt. He had long standing stable changes in the original L perihilar region. He comes with SOB and palpitations, found to be in SVT, CT chest done indicated some progressive changes in L perihilar region w/ increase in size of those changes compared w/ last imaging in 2014. Of note, pt was incarcerated from 2015 and just got out January 2020. He tells me there was some change noted on CT in assisted and it was followed by a PET/CT in [facility]. Per pt, PET was negative and they felt it was scarring. Past Medical History Cardiac Medical History: Reports: Atrial Fibrillation, Hypertension - No longer taking hypertension medication Denies: Heart Murmur Pulmonary Medical History: Reports: Bronchitis, Chronic Obstructive Pulmonary Disease (COPD) Denies: Respiratory Failure, Sleep Apnea, Tuberculosis Neurological Medical History: Denies: Seizures Endocrine Medical History: Denies: Hyperthyroidism, Hypothyroidism Renal/ Medical History: Denies: End Stage Renal Disease Malignancy Medical History: Reports: Lung Cancer Denies: Leukemia GI Medical History: Reports: Gastroesophageal Reflux Disease Denies: Crohn's Disease, Hiatal Hernia Musculoskeltal Medical History: Reports: Arthritis Denies: Fibromyalgia Psychiatric Medical History: Reports: Depression Denies: Bipolar Disorder, Dementia, Post Traumatic Stress Disorder Hematology: Denies: Anemia, Hemophilia, Sickle Cell Disease Infectious Medical History: Denies: HIV Past Surgical History Past Surgical History: Reports: Orthopedic Surgery - left leg Denies: Appendectomy, Cholecystectomy, Colostomy, Coronary Artery Bypass Graft, Gastric Bypass Surgery, Herniorrhaphy, Pacemaker, Tonsillectomy Social History Information Source: Patient Smoking Status: Current Every Day Smoker Frequency of Alcohol Use: Heavy Hx Recreational Drug Use: Yes Hx Prescription Drug Abuse: No - Advance Directive Resuscitation Status: Full Code Family History Family History: CAD, Hypertension Parental Family History Reviewed: Yes Children Family History Reviewed: Yes Sibling(s) Family History Reviewed.: Yes Medication/Allergy Home Medications: Gabapentin [Neurontin 400 mg Capsule] 800 mg PO TID 09/11/13 Albuterol Sulfate [Albuterol Sulfate Hfa] 2 puff IH Q4HP PRN 03/22/20 Albuterol Sulfate [Ventolin 0.083% Neb 2.5 mg/3 ml Ampul] 1 vial NEB RTQ6HP PRN 03/22/20 Aspirin [Ecotrin 81 mg EC Tablet] 81 mg PO DAILY 03/22/20 Cetirizine HCl [Zyrtec 10 mg Tablet] 10 mg PO DAILY 03/22/20 Diltiazem HCl [Cardizem Cd 240 mg Capsule.cr] 240 mg PO DAILY 03/22/20 Fluticasone Propionate [Flonase Nasal [place] 50 Mcg/[place] 16 gm] 1 spray NAREB DAILY 03/22/20 Levothyroxine Sodium 75 mcg PO Q6AM 03/22/20 Omeprazole 20 mg PO DAILY 03/22/20 Tiotropium [place] [Spiriva Handihaler 5 Cap/Kit (18 Mcg/Cap)] 1 cap IH DAILY 03/22/20 Allergies/Adverse Reactions: No Known Drug Allergies Allergy (Verified 03/22/20 10:20) Review of Systems Constitutional: ABSENT: chills, fever(s), headache(s), weight gain, weight loss Eyes: ABSENT: visual disturbances Ears: ABSENT: hearing changes Cardiovascular: ABSENT: chest pain, dyspnea on exertion, edema, orthropnea, palpitations Respiratory: ABSENT: cough, hemoptysis Gastrointestinal: ABSENT: abdominal pain, constipation, diarrhea, hematemesis, hematochezia, nausea, vomiting Genitourinary: ABSENT: dysuria, hematuria Musculoskeletal: ABSENT: joint swelling Integumentary: ABSENT: rash, wounds Neurological: ABSENT: abnormal gait, abnormal speech, confusion, dizziness, focal weakness, syncope Psychiatric: ABSENT: anxiety, depression, homidical ideation, suicidal ideation Endocrine: ABSENT: cold intolerance, heat intolerance, polydipsia, polyuria Hematologic/Lymphatic: ABSENT: easy bleeding, easy bruising Physical Exam Vital Signs: Temp Pulse Resp BP Pulse Ox 98.2 F 77 18 102/61 93 03/24/20 03:30 03/24/20 07:00 03/24/20 03:30 03/24/20 03:30 03/24/20 03:30 Intake & Output 03/23/20 03/24/20 03/25/20 06:59 06:59 06:59 Intake Total 50 1780 Balance 50 1780 Weight 70 kg 70.5 kg General appearance: PRESENT: no acute distress, well-developed, well-nourished Head exam: PRESENT: atraumatic, normocephalic Eye exam: PRESENT: conjunctiva pink, EOMI, PERRLA. ABSENT: scleral icterus Ear exam: PRESENT: normal external ear exam Mouth exam: PRESENT: moist, tongue midline Neck exam: ABSENT: carotid bruit, JVD, lymphadenopathy, thyromegaly Respiratory exam: PRESENT: clear to auscultation ivana. ABSENT: rales, rhonchi, wheezes Cardiovascular exam: PRESENT: RRR. ABSENT: diastolic murmur, rubs, systolic murmur Pulses: PRESENT: normal dorsalis pedis pul Vascular exam: PRESENT: normal capillary refill GI/Abdominal exam: PRESENT: normal bowel sounds, soft. ABSENT: distended, guarding, mass, organolmegaly, rebound, tenderness Rectal exam: PRESENT: deferred Extremities exam: PRESENT: full ROM. ABSENT: calf tenderness, clubbing, pedal edema Neurological exam: PRESENT: alert, awake, oriented to person, oriented to place, oriented to time, oriented to situation, CN II-XII grossly intact. ABSENT: motor sensory deficit Psychiatric exam: PRESENT: appropriate affect, normal mood. ABSENT: homicidal ideation, suicidal ideation Skin exam: PRESENT: dry, intact, warm. ABSENT: cyanosis, rash Results Laboratory Results: 03/23/20 05:00 03/23/20 05:00 03/23/20 04:40 Sputum Gram Stain - Final 03/23/20 04:40 Sputum Sputum Culture - Final 03/22/20 03/22/20 09:55 09:55 Creatine Kinase 293 H CK-MB (CK-2) 1.72 Troponin I 0.013 Impressions: Chest/Abdomen CTA 03/22/20 00:00 IMPRESSION: There are airspace opacities at the left lower lobe which may reflect infection. There is a 2.8 cm masslike density at the left infrahilar region more pronounced than on 2015 imaging concerning for recurrent malignancy. No filling defect is seen to suggest a pulmonary artery embolism. Emphysematous changes are seen within the lungs. Chest X-Ray 03/22/20 10:30 IMPRESSION: New patchy left basilar consolidation -possible small left pleural effusion. Status: Image reviewed by me Assessment & Plan - Diagnosis (1) Cancer of middle lobe of lung Is this a current diagnosis for this admission?: Yes Plan: H/o L stage III NSCLC. This could be recurrent dx, but pt completed rx back in 2011 so he is 8 yrs out, so if it is disease may actually be new dx. Regardless, don't believe this is cause of his current complaint. will need to f/u in our office and would do PET/CT as outpt to further f.u. - Time Time Spent: Greater than 70 Minutes Disposition: Patient was consulted today for this telemedicine visit due to the COVID-19 restrictions. Patient states understanding and consents to this telemedicine visit. Patient confirmed identity with two patient identifiers. - Inpatient Certification Based on my medical assessment, after consideration of the patient's comorbidities, presenting symptoms, or acuity I expect that the services needed warrant INPATIENT care.: Yes I certify that my determination is in accordance with my understanding of Medicare's requirements for reasonable and necessary INPATIENT services [42 CFR 412.3e].: Yes Medical Necessity: Need For Continuous Telemetry Monitoring, Risk of Complication if Not Cared For in Hospital
[2020-03-24] MEDS: ASPIRIN 81 MG TABLET, ENT COATED PO SCH (09:20)
[2020-03-24] MEDS: GABAPENTIN 400 MG CAPSULE PO SCH (09:20)
[2020-03-24] MEDS: ENOXAPARIN SODIUM INJ 40 MG/0.4 ML DISP.SYRIN SUBCUT SCH (09:21)
[2020-03-24] MEDS: FLUTICASONE NASAL SPRAY 50 MCG/SPRY 120 SPRAY/16 GM NAREB SCH (09:21)
[2020-03-24] MEDS: DILTIAZEM HCL 240 MG CAPSULE.CR PO SCH (09:21)
[2020-03-24] MEDS: GUAIFENESIN 600 MG TABLET.SA PO SCH (09:21)
[2020-03-24] MEDS: CETIRIZINE 10 MG TABLET PO SCH (09:21)
[2020-03-24] MEDS: PANTOPRAZOLE SODIUM 20 MG TABLET.DR PO SCH (09:21)
[2020-03-24] MEDS: IPRATROPIUM/ALBUTEROL 0.5-2.5 MG/3 ML AMPUL NEB PRN (10:05)
--- NOTE | 2020-03-24 12:28 | PDOC DISCHARGE SUMMARY ---
Impression - Admit/DC Date/PCP Admission Date/Primary Care Provider: 03/22/20 14:09 Discharge Date: 03/24/20 - Discharge Diagnosis (1) Supraventricular tachycardia, paroxysmal Is this a current diagnosis for this admission?: Yes (2) Pneumonia Is this a current diagnosis for this admission?: Yes (3) Mass of left lung Is this a current diagnosis for this admission?: Yes (4) Syncope Is this a current diagnosis for this admission?: Yes (5) COPD (chronic obstructive pulmonary disease) Is this a current diagnosis for this admission?: Yes - Additional Information Resuscitation Status: Full Code Discharge Diet: As Tolerated Discharge Activity: Activity As Tolerated Referrals: DONNY SMITH MD [ACTIVE STAFF] - JANINE AGUERO MD [NO LOCAL MD] - Prescriptions: Azithromycin 250 mg PO DAILY 3 Days #3 tablet Cefdinir 300 mg PO Q12 5 Days #10 capsule Diltiazem HCl [Diltiazem 24Hr ER] 240 mg PO DAILY #30 cap.sa.24h Home Medications: Gabapentin [Neurontin 400 mg Capsule] 800 mg PO TID 09/11/13 Albuterol Sulfate [Albuterol Sulfate Hfa] 2 puff IH Q4HP PRN 03/22/20 Albuterol Sulfate [Ventolin 0.083% Neb 2.5 mg/3 mL Ampul] 1 vial NEB RTQ6HP PRN 03/22/20 Aspirin [Ecotrin 81 mg EC Tablet] 81 mg PO DAILY 03/22/20 Cetirizine HCl [Zyrtec 10 mg Tablet] 10 mg PO DAILY 03/22/20 Fluticasone Propionate [Flonase Nasal [place] 50 Mcg/[place] 16 gm] 1 spray NAREB DAILY 03/22/20 Levothyroxine Sodium 75 mcg PO Q6AM 03/22/20 Omeprazole 20 mg PO DAILY 03/22/20 Tiotropium [place] [Spiriva Handihaler 5 Cap/Kit (18 Mcg/Cap)] 1 cap IH DAILY 03/22/20 Azithromycin 250 mg PO DAILY 3 Days #3 tablet 03/24/20 Cefdinir 300 mg PO Q12 5 Days #10 capsule 03/24/20 Diltiazem HCl [Diltiazem 24Hr ER] 240 mg PO DAILY #30 cap.sa.24h 03/24/20 History of Present Illiness History of Present Illness: KETAN PORTILLO is a 49 year old male with history of COPD, distant history of lung cancer reports to be in remission, who presents to the hospital after becoming dyspneic with palpitations. He has been having these symptoms off and on for the past 1 week but the symptoms became really bad today urging him to come to the hospital. He also had a brief episode of syncope yesterday which was preceded by excessive palpitations. He denied any chest pain during encounter. In the ER, patient was noted to have severe SVT in the 180s was given Cardizem after which he showed improvement. Subsequently referred to hospitalist service for admission. Patient also endorses a dry hacking cough which he states he feels is due to his COPD. Hospital Course Hospital Course: Patient was admitted to the hospital after having an episode of palpitations with associated syncope. He had been noted to be in SVT with heart rates in the 180s to 200s. He received Cardizem IV which improved his symptoms. He will denied any evidence of chest pain. He was subsequently admitted and placed on cardiac monitoring. He never had any recurrence of his SVT while in the hospital. Electrolytes on admission were only significant for mild hyponatremia but with normal potassium and magnesium levels. Troponin was nonelevated. TSH was minimally low but free T4 was normal. Echocardiogram showed normal ejection fraction as well as normal left ventricular wall motion. No evidence of heart failure. Patient was evaluated by cardiology who has recommended patient see Dr. Janine Aguero who is an sheep shearer as outpatient for further management and possible ablation in the future. Of note, upon admission CTA of the chest was performed which revealed left sided pneumonia possibly postobstructive and increased size of his left infrahilar masslike opacity now up to 2.8 cm. He was started on IV antibiotics and has been transitioned to oral antibiotics at the time of discharge. He does have a history of lung cancer and follows with Dr. Smith who was consulted and asked discussed with patient I will be planning for a PET scan to be done as outpatient. Patient was COVID tested and result is still pending at the time of discharge but he has been instructed to self isolate until he gets a negative result. He will be following up with our medical record department to get the results of his test. Physical Exam Vital Signs: Temp Pulse Resp BP Pulse Ox 98.2 F 84 16 102/61 93 07/28/20 03:30 03/24/20 10:05 03/24/20 10:05 03/24/20 03:30 03/24/20 10:05 Intake & Output 03/23/20 03/24/20 03/25/20 06:59 06:59 06:59 Intake Total 50 1780 Balance 50 1780 Weight 70 kg 70.5 kg General appearance: PRESENT: no acute distress, cooperative Neck exam: ABSENT: JVD Respiratory exam: PRESENT: clear to auscultation ivana, unlabored. ABSENT: tachypnea, wheezes Cardiovascular exam: PRESENT: RRR, +S1, +S2. ABSENT: irregular rhythm, tachycardia Neurological exam: PRESENT: alert, awake, oriented to person, oriented to place, oriented to time Results Laboratory Results: WBC 11.8 10^3/uL (4.0-10.5) H 03/23/20 05:00 RBC 5.36 10^6/uL (4.35-5.55) 03/23/20 05:00 Hgb 14.5 g/dL (13.5-17.0) 03/23/20 05:00 Hct 44.1 % (37.9-51.0) 03/23/20 05:00 MCV 82 fl (80-97) 03/23/20 05:00 MCH 27.1 pg (27.0-33.4) 03/23/20 05:00 MCHC 33.0 g/dL (32.0-36.0) 03/23/20 05:00 RDW 15.2 % (11.5-14.0) H 03/23/20 05:00 Plt Count 283 10^3/uL (150-450) D 03/23/20 05:00 Lymph % (Auto) 20.3 % (13-45) 03/23/20 05:00 [place] % (Auto) 15.6 % (3-13) H 03/23/20 05:00 Eos % (Auto) 1.5 % (0-6) 03/23/20 05:00 Baso % (Auto) 1.0 % (0-2) 03/23/20 05:00 Absolute Neuts (auto) 7.3 10^3/uL (1.7-8.2) 03/23/20 05:00 Absolute Lymphs (auto) 2.4 10^3/uL (0.5-4.7) 03/23/20 05:00 Absolute Monos (auto) 1.8 10^3/uL (0.1-1.4) H 03/23/20 05:00 Absolute Eos (auto) 0.2 10^3/uL (0.0-0.6) 03/23/20 05:00 Absolute Basos (auto) 0.1 10^3/uL (0.0-0.2) 03/23/20 05:00 Seg Neutrophils % 61.6 % (42-78) 03/23/20 05:00 Sodium 131.5 mmol/L (137-145) L 03/23/20 05:00 Potassium 3.6 mmol/L (3.6-5.0) 03/23/20 05:00 Chloride 97 mmol/L (98-107) L 03/23/20 05:00 Carbon Dioxide 25 mmol/L (22-30) 03/23/20 05:00 Anion Gap 10 (5-19) 03/23/20 05:00 BUN 8 mg/dL (7-20) 03/23/20 05:00 Creatinine 0.91 mg/dL (0.52-1.25) 03/23/20 05:00 Est GFR ( Amer) > 60 (>60) 03/23/20 05:00 Est GFR (MDRD) Non-Af > 60 (>60) 03/23/20 05:00 Glucose 104 mg/dL (75-110) 03/23/20 05:00 Calcium 8.5 mg/dL (8.4-10.2) 03/23/20 05:00 Magnesium 1.9 mg/dL (1.6-2.3) 03/23/20 05:00 Total Bilirubin 0.6 mg/dL (0.2-1.3) 03/22/20 09:55 Direct Bilirubin 0.0 mg/dL (0.0-0.4) 03/22/20 09:55 Neonat Total Bilirubin Not Reportable 03/22/20 09:55 Neonat Direct Bilirubin Not Reportable 03/22/20 09:55 Neonat Indirect Bili Not Reportable 03/22/20 09:55 AST 44 U/L (17-59) 03/22/20 09:55 ALT 12 U/L (<50) 03/22/20 09:55 Alkaline Phosphatase 97 U/L (38-126) 03/22/20 09:55 Creatine Kinase 293 U/L (55-170) H 03/22/20 09:55 CK-MB (CK-2) 1.72 ng/mL (<4.55) 03/22/20 09:55 Troponin I 0.013 ng/mL 03/22/20 09:55 Total Protein 6.9 g/dL (6.3-8.2) 03/22/20 09:55 Albumin 3.6 g/dL (3.5-5.0) 03/22/20 09:55 TSH 0.40 uIU/mL (0.47-4.68) L 03/22/20 09:55 Free T4 1.27 ng/dL (0.78-2.19) 03/22/20 09:55 Urine Color STRAW 03/22/20 12:13 Urine Appearance CLEAR 03/22/20 12:13 Urine pH 8.0 (5.0-9.0) 03/22/20 12:13 Ur Specific [place] 1.003 03/22/20 12:13 Urine Protein NEGATIVE mg/dL (NEGATIVE) 03/22/20 12:13 Urine Glucose (UA) NEGATIVE mg/dL (NEGATIVE) 03/22/20 12:13 Urine Ketones NEGATIVE mg/dL (NEGATIVE) 03/22/20 12:13 Urine Blood NEGATIVE (NEGATIVE) 03/22/20 12:13 Urine Nitrite (Reflex) NEGATIVE (NEGATIVE) 03/22/20 12:13 Urine Bilirubin NEGATIVE (NEGATIVE) 03/22/20 12:13 Urine Urobilinogen NEGATIVE mg/dL (<2.0) 03/22/20 12:13 Leukocyte Esterase Rfl NEGATIVE (NEGATIVE) 03/22/20 12:13 Urine RBC (Auto) 0 /HPF 03/22/20 12:13 Urine WBC (Reflex) < 1 /HPF 03/22/20 12:13 Urine Mucus (Auto) RARE /LPF 03/22/20 12:13 Urine Ascorbic Acid NEGATIVE (NEGATIVE) 03/22/20 12:13 Urine Opiates Screen NEGATIVE 03/22/20 12:13 Urine Methadone Screen NEGATIVE 03/22/20 12:13 Ur Barbiturates Screen NEGATIVE 03/22/20 12:13 Ur Phencyclidine Scrn NEGATIVE 03/22/20 12:13 Ur Amphetamines Screen NEGATIVE 03/22/20 12:13 U Benzodiazepines Scrn NEGATIVE 03/22/20 12:13 Urine Cocaine Screen NEGATIVE 03/22/20 12:13 U Marijuana (THC) Screen NEGATIVE 03/22/20 12:13 03/22/20 09:55 CK-MB (CK-2) 1.72 Troponin I 0.013 Impressions: Chest/Abdomen CTA 03/22/20 00:00 IMPRESSION: There are airspace opacities at the left lower lobe which may reflect infection. There is a 2.8 cm masslike density at the left infrahilar region more pronounced than on 2015 imaging concerning for recurrent malignancy. No filling defect is seen to suggest a pulmonary artery embolism. Emphysematous changes are seen within the lungs. Chest X-Ray 03/22/20 10:30 IMPRESSION: New patchy left basilar consolidation -possible small left pleural effusion. Plan Time Spent: Less than 30 Minutes Stroke Is this a Stroke Patient?: No Acute Heart Failure - Is this a Heart Failure Patient?: No
[2020-03-24 13:20] VITALS: BP 96/62
== END 2020-03-24 12:54 | disposition home or self-care (01) | DRG 308 ==
LOC: ER 08:42 → EH 14:09 → 3N 20:22
PROVIDERS: ADMIT Internal Medicine; ATTEND Internal Medicine
DX: I47.1 Supraventricular tachycardia (principal); J18.9 Pneumonia, unspecified organism; R00.2 Palpitations; J44.9 Chronic obstructive pulmonary disease, unspecified; E07.9 Disorder of thyroid, unspecified; I48.91 Unspecified atrial fibrillation; I10 Essential (primary) hypertension; K21.9 Gastro-esophageal reflux disease without esophagitis; F17.210 Nicotine dependence, cigarettes, uncomplicated; Z20.828 Contact with and (suspected) exposure to other viral communicable diseases; Z85.118 Personal history of other malignant neoplasm of bronchus and lung; Z79.82 Long term (current) use of aspirin; Z79.891 Long term (current) use of opiate analgesic; Z79.51 Long term (current) use of inhaled steroids; Z79.899 Other long term (current) drug therapy
CPT/HCPCS: 36415; 71045; 71275; 80048; 80053; 80307; 81001; 82550; 82553; 83735; 84439; 84443; 84484; 85025; 87205; 87635; 93005; 93010; 93306; 96374; 96375; 99285; C9803; J0456; J0696; J1650; J3490; J7060

== ENCOUNTER → 2020-04-28 | Outpatient (CLI) | payer MEDICAID ==
--- NOTE | 2020-04-28 16:18 | RADIOLOGY REPORT (SQ) ---
EXAM DESCRIPTION: PET CT SKULL/THIGH IMAGES COMPLETED DATE/TIME: 04/28/2020 9:57 am REASON FOR STUDY: C34.12 MALIGNANT NEOPLASM OF UPPER LOBE, LEFT BRONCHUS OR LUNG C34.12 MALIGNANT N EOPLASM OF UPPER LOBE, LEFT BRONCHUS OR ALBERTO. Lung cancer. COPD. Patient was diagnosed with stage II I lung cancer left lung, status post chemo radiation completed in 2011. Recently diagnosed with pneu monia and treated. Follow-up left hilar fullness. COMPARISON: CT angiography chest, 03/22/2020. CT chest, abdomen and pelvis, 06/05/2015. RADIONUCLIDE AND DOSE: 9.89 mCi F18 FDG The route of agent administration: Intravenous FASTING BLOOD SUGAR: 82 mg/dl CONTRAST TYPE AND DOSE: No CT contrast given. TECHNIQUE: Blood glucose level was verified. Above dose of FDG was injected intravenously. 2-D seg mented attenuation correction images were obtained from the base of the skull to the midthighs. Nonc ontrast CT images were obtained for attenuation correction and fusion with emission images. CT image s were performed without oral or intravenous contrast and are not sensitive for parenchymal lesions. A series of overlapping emission PET images were obtained. Images reviewed and manipulated at [facility] work station by the radiologist. Images stored on PACS. LIMITATIONS: None. FINDINGS: HEAD AND NECK: No areas of abnormal metabolic activity in the soft tissues of the head and neck. CHEST: No areas of abnormal metabolic activity in the chest. Improved aeration in the left lower lob e, with mild residual ground-glass attenuation, consistent with resolving pneumonia. Calcified left hilar lymph nodes. Decreasing size and number of mediastinal lymph node, consistent with resolving r eactive adenopathy. These lymph nodes demonstrate minimal FDG activity, below blood pool activity. The largest node is seen in the aortic pulmonary window space measuring 1 x 0.8 cm, previously 1.4 x 1.1 cm. No hypermetabolic lymph nodes. ABDOMEN AND PELVIS: No areas of abnormal metabolic activity in the abdomen or pelvis. Expected physi ologic activity is present in the genitourinary system and bowel. Background hepatic activity SUV 2. 7. PROXIMAL LOWER EXTREMITIES: No areas of abnormal metabolic activity in the soft tissues of the lower extremities. BONES: No abnormal metabolic activity in the visualized skeleton. ADDITIONAL CT FINDINGS: Background moderate pulmonary emphysema. Mild hepatic steatosis. OTHER: No other significant findings. IMPRESSION: 1. Improving aeration in the left lower lobe, consistent with resolving pneumonia. Decreasing size a nd number of mediastinal lymph nodes, consistent with resolving reactive adenopathy. No hypermetabol ic mediastinal or hilar adenopathy. No evidence of recurrent or metastatic disease in the chest, abd omen or pelvis. 2. Mild hepatic steatosis. 3. Background moderate pulmonary emphysema, stable. TECHNICAL DOCUMENTATION: JOB ID: [id number] 2010 [employer]- All Rights Reserved Reading location - IP/workstation name: [email or web address]
== END ==
LOC: RAD 08:25
PROVIDERS: ATTEND Internal Medicine
DX: C34.12 Malignant neoplasm of upper lobe, left bronchus or lung (principal); J43.9 Emphysema, unspecified
CPT/HCPCS: 78815; A9552